=== PATIENT | male | born 1945 | race Caucasian/White ===

== ENCOUNTER 2024-05-09 16:46 | Inpatient (IN) | payer MEDICARE, OTHER, SELFPAY ==
[2024-05-09] VITALS (15 sets, daily range): BP systolic 123–152; BP diastolic 60–77; PULSE 56–110; RESP 16–20; TEMP 36.9–37; O2SAT 87–97; BMI 28.0
[2024-05-09 18:07] LABS: Influenza A - CEPHEID Flu A NEGATIVE (NEGATIVE); Influenza B - CEPHEID Flu B NEGATIVE (NEGATIVE); Respiratory Syncytial Virus Negative (Negative)
[2024-05-09 18:10] LABS: COVID-19 CEPHEID 4-PLEX PCR Negative (Negative)
[2024-05-09] MEDS: ALBUTEROL/IPRATROPIUM 3 ML AMPUL 6 ML INH (18:36)
[2024-05-09] MEDS: methylPREDNISolone 125 MG/2 ML VIAL IV (19:03)
[2024-05-09 19:08] LABS: Add Manual Diff / Slide Review NO; Basophils Absolute Auto 0 /uL (0-100); Basophils Percent Auto 0.4 % (0-2); Eosinophils Absolute Auto 200 /uL (0-450); Eosinophils Percent Auto 1.7 % (2-4); Hematocrit 36.3 % (41-53); Hemoglobin 12.1 g/dL (13.5-17.5); Lymphocytes Absolute Auto 900 /uL (1100-4500); Lymphocytes Percent Auto 8.9 % (25-40); Mean Corpuscular HGB Conc 33.4 % (30-36); Mean Corpuscular Hemoglobin 30.9 PG (26-34); Mean Corpuscular Volume 92.6 fL (80-100); Monocytes Absolute Auto 1200 /uL (0-900); Monocytes Percent Auto 11.1 % (3-14); Neutrophils Absolute Auto 8300 /uL (1500-7000); Neutrophils Percent Auto 77.9 % (50-75); Platelet Count 436 X10^3/uL (150-400); Red Blood Cell Count 3.92 X10^6/uL (4.5-5.9); Red Cell Distribution Width 14.4 % (11.6-14.8); White Blood Cell Count 10.7 X10^3/uL (4.5-11.0)
[2024-05-09 19:18] LABS: Alanine Aminotransferase 44 IU/L (<50); Albumin 3.4 g/dL (3.5-5.0); Albumin Globulin Ratio 1.1 (1.0-2.8); Alkaline Phosphatase 153 U/L (38-126); Aspartate Aminotransferase 28 IU/L (17-59); BUN Creatinine Ratio 17.9 (6-22); Bilirubin Total 0.6 mg/dL (0.2-1.3); Blood Urea Nitrogen 20 mg/dL (9-20); Calcium 8.8 mg/dL (8.4-10.2); Carbon Dioxide 34 mmol/L (22-32); Chloride 99 mmol/L (98-107); Estimated Glomerular Filt Rate > 60 mL/min (>60); Glucose 144 mg/dL (80-110); HEMOLYSIS < 15 (0-50); Potassium 3.8 mmol/L (3.4-5.1); Sodium 136 mmol/L (137-145); Total Protein 6.4 g/dL (6.3-8.2)
--- NOTE | 2024-05-09 19:51 | DI.CT.S_ITS ---
PROCEDURE: CT ANGIO CHEST PE PROTOCOL INDICATIONS: DYSPNEA, PERSISTENT PNA, OFF XARELTO TECHNIQUE: After the administration of intravenous contrast, 2 mm thick sections acquired from the pulmonary apices to the posterior costophrenic angles. 3-dimensional maximum intensity projection (MIP) coronal and sagittal reformats were then acquired through the thorax. For radiation dose reduction, the following was used: automated exposure control, adjustment of mA and/or kV according to patient size. COMPARISON: None. FINDINGS: Image quality: Diagnostic. Pulmonary arteries: Pulmonary arteries are normal in size, and demonstrate no intraluminal filling defects to suggest central pulmonary embolism. Lower Neck: No enlarged lymph nodes. Thyroid: No thyroid nodules which require sonographic follow up, per consensus guidelines. Axillae: No enlarged lymph nodes. Chest Wall: Unremarkable. Bones: Multiple chronic thoracic compressions resulting in increased thoracic kyphosis. Lungs and Pleura: Extensive bibasilar peribronchial infiltrates consistent with extensive peribronchial pneumonia. There is extensive bronchial wall thickening in the lung bases. There is also patchy consolidation in the lingula of the left lung and in the right middle lobe, and somewhat in the right upper lobe. Heart: Cardiomegaly, interatrial repair. Severe coronary artery atherosclerotic calcifications. Thoracic Vessels: No aortic aneurysm. Mediastinum and Kelley: No enlarged lymph nodes. Esophagus: No wall thickening. No hiatal hernia. Upper Abdomen: Visualized upper abdomen solid organs and bowel loops appear normal. IMPRESSION: 1. No acute pulmonary emboli. 2. Cardiomegaly. 3. Extensive peribronchial pneumonia. There is associated extensive bronchial wall thickening. 4. Multiple thoracic compressions with increased thoracic kyphosis. Comment: Consider aspiration pneumonia as a potential etiology. Dictated by: Dickson Sequeira M.D. on 05/09/2024 at 20:40 Approved by: Dickson Sequeira M.D. on 05/09/2024 at 20:44
--- NOTE | 2024-05-09 19:52 | ED.URI ---
HPI - URI/Sore Throat General Chief Complaint: Upper Respiratory Symptoms Stated Complaint: Sent from [facility] Time Seen by Provider: 05/09/24 18:00 History of Present Illness HPI Narrative: 78-year-old male with history of asthma presents by private vehicle from home for evaluation of pneumonia. Patient states that on the 29 of April he picked up a ?bug? while on a cruise in [place]. He went to the walk-in clinic on the . He was diagnosed with pneumonia and discharged with Augmentin and azithromycin. He finished these medications but continued to have a cough with sputum. He went back to the walk-in clinic today. A repeat chest x-ray showed no improvement in the pneumonia and he was referred to the ER for evaluation. Related Data Home Medications Medication Instructions Recorded Confirmed albuterol sulfate 90 mcg/actuation 2 puff INH ##0 11/11/16 aerosol inhaler (Ventolin HFA) albuterol sulfate 90 mcg/actuation 1 puff inhalation PRN PRN asthma 05/09/24 05/09/24 aerosol inhaler aspirin 81 mg tablet,delayed 81 mg DAILY 05/09/24 05/09/24 release fluticasone fur. 100 mcg-umeclid 2 inh inhalation DAILY 05/09/24 05/09/24 62.5 mcg-vilant 25 mcg inhalat.powder (Trelegy Ellipta) omeprazole 20 mg capsule,delayed 20 mg DAILY 05/09/24 05/09/24 release rivaroxaban 20 mg tablet (Xarelto) 20 mg DAILY 05/09/24 05/09/24 rivaroxaban 20 mg tablet (Xarelto) 20 mg DAILY 05/09/24 05/09/24 tadalafil 20 mg tablet 100 mg PRN PRN erectile dysfuction 05/09/24 05/09/24 telmisartan 20 mg tablet 20 mg DAILY 05/09/24 05/09/24 Allergies Allergy/AdvReac Type Severity Reaction Status Date / Time cat dander Allergy Unknown Verified 05/09/24 18:29 dog dander Allergy Unknown Verified 05/09/24 18:29 Patient History Social History household members: significant other Smoking Status: Never smoker Exam Initial Vital Signs Initial Vital Signs: Vital Signs Temperature 98.5 F 05/09/24 17:10 Pulse Rate 87 05/09/24 17:10 Respiratory Rate 20 05/09/24 17:10 Blood Pressure 124/60 05/09/24 17:10 Pulse Oximetry 93 05/09/24 17:10 Oxygen Delivery Method Room Air 05/09/24 17:10 Const: Awake, alert, no acute distress, nontoxic appearing Cardiac: regular rate, regular rhythm RESP: unlabored, paint inspirational crackles, soft expiratory wheezes GI: Soft, nontender, nondistended, no rebound, no guarding MSK: Atraumatic, full range of motion, pulses equal Skin: Warm, Dry, intact, no rashes Neuro: AO x3, CN II-XII grossly intact, moves all extremities Course Orders Ordered: ED Orders 05/09/24 18:35 CBC Auto Diff [Complete Blood Count AUTO DIFF] Stat CMP [Comprehensive Metabolic Panel] Stat 05/09/24 19:51 CT angio chest PE protocol Stat Albuterol/Ipratropium (Albuterol/Ipratropium 3 Ml Ampul) 3 ml INH [id number] PRN PRN Reason: Shortness Of Breath Albuterol/Ipratropium (Albuterol/Ipratropium 3 Ml Ampul) 3 ml INH [id number] [facility] Sodium Chloride (Normal Saline 0.9%) 1,000 mls @ 75 mls/hr IV CONT [facility] Last Admin: 05/09/24 23:30 Dose: 75 mls/hr Documented By: Piperacillin Sod/Tazobactam (Sod 3.375 gm/ Sodium Chloride) 100 mls @ 25 mls/hr IV Q8H [facility] Last Admin: 05/09/24 23:33 Dose: 25 mls/hr Documented By: Doxycycline Hyclate 100 mg/ (Sodium Chloride) 100 mls @ 100 mls/hr IV Q12H [facility] Methylprednisolone (Methylprednisolone 125 Mg/2 Ml Vial) 60 mg IV Q6H [facility] Last Admin: 05/10/24 01:44 Dose: 60 mg Documented By: AM Naloxone HCl (Naloxone 0.4 Mg/Ml Vial) 0.2 mg IV Q2MIN PRN PRN Reason: Opiate Reversal Ondansetron HCl (Ondansetron 4 Mg/2 Ml Inj) 4 mg IV Q8HR PRN PRN Reason: Nausea And Vomiting Discontinued Medications Albuterol/Ipratropium (Albuterol/Ipratropium 3 Ml Ampul) 6 ml INH NOW ONE Stop: 05/09/24 18:24 Last Admin: 05/09/24 18:36 Dose: 6 ml Documented By: NIMO Albuterol/Ipratropium (Albuterol/Ipratropium 3 Ml Ampul) 3 ml INH NOW ONE Stop: 05/09/24 19:45 Last Admin: 05/09/24 20:21 Dose: 3 ml Documented By: Droperidol (Droperidol 2.5 Mg/Ml Vial) 2.5 mg IV NOW ONE Stop: 05/09/24 18:48 Last Admin: 05/09/24 18:59 Dose: Not Given Documented By: MATTIE Ceftriaxone Sodium 2,000 mg/ (Sodium Chloride) 100 mls @ 200 mls/hr IV NOW ONE Stop: 05/09/24 20:12 Last Infusion: 05/09/24 21:13 Dose: Infused Documented By: Admin: 05/09/24 20:33 Dose: 200 mls/hr Documented By: MATTIE Doxycycline Hyclate 100 mg/ (Sodium Chloride) 100 mls @ 100 mls/hr IV NOW ONE Stop: 05/09/24 20:12 Last Infusion: 05/09/24 23:30 Dose: Infused Documented By: Infusion: 05/09/24 22:11 Dose: 100 mls/hr Documented By: Admin: 05/09/24 21:26 Dose: 100 mls/hr Documented By: MATTIE Doxycycline Hyclate 100 mg/ (Sodium Chloride) 100 mls @ 100 mls/hr IV Q12H [facility] Last Admin: 05/10/24 02:01 Dose: Not Given Documented By: CAROL Methylprednisolone (Methylprednisolone 125 Mg/2 Ml Vial) 125 mg IV NOW ONE Stop: 05/09/24 18:48 Last Admin: 05/09/24 19:03 Dose: 125 mg Documented By: MATTIE Methylprednisolone (Methylprednisolone 125 Mg/2 Ml Vial) 60 mg IV Q6H [facility] Last Admin: 05/10/24 02:23 Dose: Not Given Documented By: KEVIN Vital Signs Vital signs: Vital Signs - 8 hr 05/09/24 19:00 05/09/24 19:30 05/09/24 19:37 Pulse Rate 74 71 69 Respiratory Rate Blood Pressure Pulse Oximetry 91 89 L 91 Oxygen Delivery Method Oxygen Flow Rate 05/09/24 19:37 05/09/24 19:56 05/09/24 20:00 Pulse Rate 110 H 75 Respiratory Rate 20 18 Blood Pressure 151/73 H Pulse Oximetry 87 L 93 Oxygen Delivery Method Oxygen Flow Rate 05/09/24 20:30 05/09/24 21:00 05/09/24 21:30 Pulse Rate 77 96 H 82 Respiratory Rate Blood Pressure Pulse Oximetry 92 93 94 Oxygen Delivery Method Nasal Cannula Nasal Cannula Oxygen Flow Rate 1 1 MDM - URI/Sore Throat Differential Diagnosis Differential diagnosis: Likely upper respiratory infection, viral infection and bronchitis Lab Data 05/09/24 18:35 05/09/24 18:35 Labs: Lab Results 05/09/24 05/09/24 Range/Units 17:20 18:35 WBC 10.7 (4.5-11.0) X10^3/uL RBC 3.92 L (4.5-5.9) X10^6/uL Hgb 12.1 L (13.5-17.5) g/dL Hct 36.3 L (41-53) % MCV 92.6 (80-100) fL MCH 30.9 (26-34) PG MCHC 33.4 (30-36) % RDW 14.4 (11.6-14.8) % Plt Count 436 H (150-400) X10^3/uL Neut % (Auto) 77.9 H (50-75) % Lymph % (Auto) 8.9 L (25-40) % [place] % (Auto) 11.1 (3-14) % Eos % (Auto) 1.7 L (2-4) % Baso % (Auto) 0.4 (0-2) % Neut # (Auto) 8300 H (7412-8277) /uL Lymph # (Auto) 900 L (9431-8454) /uL [place] # (Auto) 1200 H (0-900) /uL Eos # (Auto) 200 (0-450) /uL Baso # (Auto) 0 (0-100) /uL Sodium 136 L (137-145) mmol/L Potassium 3.8 (3.4-5.1) mmol/L Chloride 99 (98-107) mmol/L Carbon Dioxide 34 H (22-32) mmol/L BUN 20 (9-20) mg/dL Creatinine 1.12 (0.66-1.25) mg/dL Estimated GFR > 60 (>60) mL/min BUN/Creatinine Ratio 17.9 (6-22) Glucose 144 H (80-110) mg/dL Calcium 8.8 (8.4-10.2) mg/dL Total Bilirubin 0.6 (0.2-1.3) mg/dL AST 28 (17-59) IU/L ALT 44 (<50) IU/L Alkaline Phosphatase 153 H (38-126) U/L Total Protein 6.4 (6.3-8.2) g/dL Albumin 3.4 L (3.5-5.0) g/dL Globulin 3.0 (1.7-4.1) g/dL Albumin/Globulin Ratio 1.1 (1.0-2.8) SARS-CoV-2 (PCR) Negative (Negative) Influenza A (RT-PCR) Flu a negative (NEGATIVE) Influenza B (RT-PCR) Flu b negative (NEGATIVE) RSV (PCR) Negative (Negative) MDM Narrative Medical decision making narrative: Persistent pneumonia despite completion of outpatient oral medications. Patient with borderline oxygen saturations, 93% on room air. He states that he feels improved after nebulizers, however with ambulation trial patient quickly desaturates to the mid 80s after taking several steps outside of his room. Rocephin and doxycycline ordered IV for coverage CT angio shows extensive peribronchial pneumonia. Radiology recommendations considering aspiration PNA as etiology. Patient to be admitted for further treatment. Discharge Plan Departure Patient Disposition: Admitted As Inpatient Clinical Impression: Pneumonia Admit Date/Time: 05/09/24 21:39 Admit Provider: Graeme Roberts
[2024-05-09] MEDS: ALBUTEROL/IPRATROPIUM 3 ML AMPUL INH (20:21)
[2024-05-09] MEDS: cefTRIAXone 2,000 MG in SODIUM CHLORIDE 0.9% 100 ML 200 MG IV (20:33)
[2024-05-09] MEDS: DOXYCYCLINE 100 MG in SODIUM CHLORIDE 0.9% 100 ML IV (21:26)
[2024-05-09] MEDS: SODIUM CHLORIDE 0.9% 1,000 ML 75 ML IV (23:30)
[2024-05-09] MEDS: PIPERACILLIN/TAZO 3.375 GM in SODIUM CHLORIDE 0.9% 100 ML IV (23:33)
[2024-05-10] VITALS (11 sets, daily range): BP systolic 127–158; BP diastolic 47–64; PULSE 51–96; RESP 17–22; TEMP 36–37; O2SAT 62–99
[2024-05-10] MEDS: methylPREDNISolone 125 MG/2 ML VIAL 60 MG IV ×4 (01:44→19:25)
[2024-05-10] MEDS: ALBUTEROL/IPRATROPIUM 3 ML AMPUL INH ×4 (03:32→19:09)
--- NOTE | 2024-05-10 04:11 | P.HP_ITS ---
History of Present Illness History of Present Illness Chief complaint: Sent from [facility]e Pneumonia Narrative: 78 year old male with past medical history of asthma and GERD presents with complaints of coughing and shortness of breath. Per the patient's report, the patient was on a cruise to [place] about ten days ago. The patient went to walk in clinic on 05/01/24 and was diagnosed with Pneumonia and prescribed Azithromycin and Augmentin. The patient reports that he completed the course of antibiotics as instructed but he continue to have productive cough and some shortness of breath. The patient return to the clinic today and had a repeat CXR where there is no improvement in the pneumonia. The patient was referrred to our ER for further management. Otherwise, the patient denies any fever, chills, nausea, vomiting, chest pain or syncope. In our ER, the patient was hemodynamically stable but was requiring 1-2L of O2 per NC. Per our ER physician, the patient was having significant wheezing and Solumedrol, nebs were given. IV Ceftriaxone/Doxycycline were also given. CTA shows extensive peribronchial pneumonia with concern for possible pneumonia. [facility] Social History household members: significant other Smoking Status: Never smoker Meds Home Medications and Allergies Home Medications Medication Instructions Recorded Confirmed Type albuterol sulfate 90 mcg/actuation 2 puff INH ##0 11/11/16 History aerosol inhaler (Ventolin HFA) albuterol sulfate 90 mcg/actuation 1 puff inhalation PRN PRN asthma 05/09/24 05/09/24 History aerosol inhaler aspirin 81 mg tablet,delayed 81 mg DAILY 05/09/24 05/09/24 History release fluticasone fur. 100 mcg-umeclid 2 inh inhalation DAILY 05/09/24 05/09/24 History 62.5 mcg-vilant 25 mcg inhalat.powder (Trelegy Ellipta) omeprazole 20 mg capsule,delayed 20 mg DAILY 05/09/24 05/09/24 History release rivaroxaban 20 mg tablet (Xarelto) 20 mg DAILY 05/09/24 05/09/24 History rivaroxaban 20 mg tablet (Xarelto) 20 mg DAILY 05/09/24 05/09/24 History tadalafil 20 mg tablet 100 mg PRN PRN erectile dysfuction 05/09/24 05/09/24 History telmisartan 20 mg tablet 20 mg DAILY 05/09/24 05/09/24 History Allergies Allergy/AdvReac Type Severity Reaction Status Date / Time cat dander Allergy Unknown Verified 05/09/24 18:29 dog dander Allergy Unknown Verified 05/09/24 18:29 Review of Systems Review of Systems ROS: Yes All systems reviewed with the patient and are negative except as otherwise documented Exam Vital Signs (past 8 hours): - 05/09/24 20:30 05/09/24 21:00 05/09/24 21:30 Temperature Pulse Rate 77 96 H 82 Respiratory Rate Blood Pressure Pulse Oximetry 92 93 94 Oxygen Delivery Method Nasal Cannula Nasal Cannula Oxygen Flow Rate 1 1 05/09/24 22:00 05/09/24 22:04 05/09/24 22:04 Temperature 98.6 F Pulse Rate 80 81 Respiratory Rate 20 Blood Pressure 123/72 Pulse Oximetry 95 97 Oxygen Delivery Method Nasal Cannula Oxygen Flow Rate 2 05/10/24 03:00 Temperature 96.8 F L Pulse Rate 68 Respiratory Rate 20 Blood Pressure 158/60 H Pulse Oximetry 99 Oxygen Delivery Method Oxygen Flow Rate 2 Oxygen Delivery Method Nasal Cannula Oxygen Flow Rate 2 Narrative Exam Narrative: Physical Exam: GENERAL: The patient is not in any acute distressed. Awake and alert. HEENT: Nonicteric sclerae, PERRLA, EOMI. Oropharynx clear. Moist mucous membranes. Conjunctivae appear well perfused. HEART: Regular rate and rhythm without murmurs. No lower extremities edema. LUNGS: Clear to auscultation bilaterally. No wheezing, crackles or rhonchi ABDOMEN: Soft, positive bowel sounds, nontender. SKIN: No rash, no excessive bruising, petechiae, or purpura. NEUROLOGIC: AxO x 3. Cranial nerves II-XII intact without motor/sensory deficit. Objective Labs 05/09/24 18:35 05/09/24 18:35 Labs: Laboratory Results - last 24 hr 05/09/24 05/09/24 17:20 18:35 WBC 10.7 RBC 3.92 L Hgb 12.1 L Hct 36.3 L MCV 92.6 MCH 30.9 MCHC 33.4 RDW 14.4 Plt Count 436 H Neut % (Auto) 77.9 H Lymph % (Auto) 8.9 L [place] % (Auto) 11.1 Eos % (Auto) 1.7 L Baso % (Auto) 0.4 Neut # (Auto) 8300 H Lymph # (Auto) 900 L [place] # (Auto) 1200 H Eos # (Auto) 200 Baso # (Auto) 0 Sodium 136 L Potassium 3.8 Chloride 99 Carbon Dioxide 34 H BUN 20 Creatinine 1.12 Estimated GFR > 60 BUN/Creatinine Ratio 17.9 Glucose 144 H Calcium 8.8 Total Bilirubin 0.6 AST 28 ALT 44 Alkaline Phosphatase 153 H Total Protein 6.4 Albumin 3.4 L Globulin 3.0 Albumin/Globulin Ratio 1.1 SARS-CoV-2 (PCR) Negative Influenza A (RT-PCR) Flu a negative Influenza B (RT-PCR) Flu b negative RSV (PCR) Negative Assessment & Plan Assessment & Plan narrative: Asthma exacerbation. Admit the patient to medical telemetry. Likely trigger is from underlying pneumonia. Continue IV Solumedrol and duonebs. Treat underlying infection. Pneumonia (concern for aspiration pneumonia) and failed outpatient treatment. s/p Augmentin and Azithromycin as outpatient. NPO. Swallow evaluation. IVF. IV Zosyn and doxycycline. Mild acute respiratory failure with hypoxemia. Patient currently on 1-2L of O2 per NC. CTA chest shows no sign of PE. Likely from above. Treat as above and wean down O2 as able. GERD. Resume home PPI. DVT PPx hep SQ Code status full code Disposition home in 2 days Time-Based Coding :: [TOTAL MINUTES] spent with patient and on the chart (including review of chart, obtaining history, exam, reviewing outside data, placing orders, documenting exam and treatment plan, and counseling patient) on [DATE].
[2024-05-10 05:29] LABS: Add Manual Diff / Slide Review NO; Basophils Absolute Auto 0 /uL (0-100); Basophils Percent Auto 0.1 % (0-2); Eosinophils Absolute Auto 0 /uL (0-450); Eosinophils Percent Auto 0.1 % (2-4); Hematocrit 36.5 % (41-53); Hemoglobin 11.9 g/dL (13.5-17.5); Lymphocytes Absolute Auto 400 /uL (1100-4500); Lymphocytes Percent Auto 5.7 % (25-40); Mean Corpuscular HGB Conc 32.6 % (30-36); Mean Corpuscular Hemoglobin 30.5 PG (26-34); Mean Corpuscular Volume 93.4 fL (80-100); Monocytes Absolute Auto 100 /uL (0-900); Monocytes Percent Auto 1.7 % (3-14); Neutrophils Absolute Auto 6100 /uL (1500-7000); Neutrophils Percent Auto 92.4 % (50-75); Platelet Count 404 X10^3/uL (150-400); Red Cell Distribution Width 14.5 % (11.6-14.8); White Blood Cell Count 6.6 X10^3/uL (4.5-11.0)
[2024-05-10 05:39] LABS: BUN Creatinine Ratio 17.9 (6-22); Blood Urea Nitrogen 20 mg/dL (9-20); Calcium 8.6 mg/dL (8.4-10.2); Carbon Dioxide 30 mmol/L (22-32); Chloride 99 mmol/L (98-107); Estimated Glomerular Filt Rate > 60 mL/min (>60); Glucose 207 mg/dL (80-110); HEMOLYSIS < 15 (0-50); Potassium 4.6 mmol/L (3.4-5.1); Sodium 134 mmol/L (137-145)
[2024-05-10] MEDS: PIPERACILLIN/TAZO 3.375 GM in SODIUM CHLORIDE 0.9% 100 ML IV ×3 (05:51→21:57)
[2024-05-10] MEDS: DOXYCYCLINE 100 MG in SODIUM CHLORIDE 0.9% 100 ML IV ×2 (10:22→20:42)
--- NOTE | 2024-05-10 10:50 | PT.IIE ---
Physical Therapy Inpatient Evaluation/Re-Eval M1 PT/OT-IP Prior Functional Status Start: 05/10/24 12:59 Freq: NEEDED Status: Active Protocol: Document 05/10/24 10:50 AB (Rec: 05/10/24 13:13 AB [id number]) Medical Review Prior Functional Status Medical History Reviewed Yes Communication able to make needs known Mobility and Gait pt stated that he was indpeendent with all mobilities and ambulation without AD Social History Household Members significant other Living Arrangements House Number of Floors (Floors) 3 or More Floors Number of Stairs To Enter/Railing? pt stays on main level of the house has 3 steps without rails to enter the house Home Environment High Toilet,Walk in Shower Home Equipment Shower Seat with Backrest,Hand Held Shower,Grab Bars In Shower Additional Social History Comment pt has walking sticks M2 PT-IP Current Condition Start: 05/10/24 12:59 Freq: NEEDED Status: Active Protocol: Document 05/10/24 10:50 AB (Rec: 05/10/24 13:13 AB [id number]) Physical Therapy Current Condition Current Condition Evaluation Date 05/10/24 Treatment Diagnosis PNA; difficulty in walking Onset Date 05/09/24 M3 PT-IP Subjective Start: 05/10/24 12:59 Freq: NEEDED Status: Active Protocol: Document 05/10/24 10:50 AB (Rec: 05/10/24 13:13 AB [id number]) Subjective Physical Therapy Visit Type Type Initial Evaluation Visit Start Time 10:50 Visit Stop Time 11:40 Number of [employer]ER Visits 0 Physical Therapy Visit Comments Patient Comments pt agreeable to do PT M4 PT-IP Mobility and Gait Start: 05/10/24 12:59 Freq: NEEDED Status: Active Protocol: Document 05/10/24 10:50 AB (Rec: 05/10/24 13:13 AB [id number]) PT-Bed Mobility Assessment Supine to Sit Supine to Sit Standby Assistance PT-Transfer Assessment Sit to and From Stand Sit to and from Stand Standby Assistance,1 Person Assistance,Use of Upper Extremities Equipment Transfer Assistive Device Gait Belt,Front Wheeled Walker Orthotic/Prosthetic Devices or Brace: No Transfers Transfer Destination Chair Transfer Technique ambulated Transfer Ability Level of Assist Standby Assistance,1 Person Assistance,Use of Upper Extremities Comments Mobility Comments pt in bed and significant other in with pt. obtained PLOF and home setup. O2 sat with 2L/min O2: 94%. BP: 177/ 57 (+) coughing. pt completed supine to sit SBA . able to sit on EOB SBA. BP: 136/68. c/o feeling whoozy. pt sat on EOB for a few minutes. BP checked again: 133 /60. sit to stand SBA and pt ambulated in room ~ 20 ft using FWW SBA. pt sat on chair . O2 sat: 90%. pt rested. O2 sat up 94% . agreed to walk again. Assessed ambulation without AD. sit to stand from chair SBA and ambulated in room without AD ~ 30 ft CGA. slow paced antalgic gait. pt sat on the chair. O2 sat checked: 93%. pt agreed to stay up on the chair. positioned pt on the chair. call light and table placed within reach. Gait Assessment Gait Gait Assistance Required: Standby Assistance,Contact Guard Assist Distance (Feet) 30 Assistive Devices Assistive Device None,Gait Belt,Front Wheeled Walker Orthotic/Prosthetic Devices or Brace: No Gait Deviations General Gait Pattern Decreased Stride Length, Decreased Feet Clearance Factors Limiting Gait Function Factors Limiting Gait Function Decreased Activity Tolerance, Decreased Strength,Poor Balance,Poor Safety Awareness PT-Balance Assessment Sitting Balance and Reactions Static Sitting Balance Ability Normal Dynamic Sitting Balance Ability Good Standing Balance and Reactions Static Standing Balance Ability Good Dynamic Standing Balance Ability Fair Device Used without AD M5 PT-IP Objective Assessments Start: 05/10/24 12:59 Freq: NEEDED Status: Active Protocol: Document 05/10/24 10:50 AB (Rec: 05/10/24 13:13 AB [id number]) Orientation Orientation/Cognition Level of Alertness Alert Orientation Name,Place,Situation Language Function Ability No Deficits Noted Safety Awareness Understands Safety Issues Memory Description Short Term Impaired Gross Range of Motion Lower Extremity ROM Assessment Within Functional Limits Strength Lower Extremity Strength Assessment Within Functional Limits Coordination Assessment Gross Coordination Gross Coordination WNL Sensation Assessment Sensation Gross Sensation WNL Muscle Tone Muscle Tone WNL Yes M6 PT-IP Treatment Start: 05/10/24 12:59 Freq: NEEDED Status: Active Protocol: Document 05/10/24 10:50 AB (Rec: 05/10/24 13:13 AB [id number]) Physical Therapy Treatment Education Education Provided Safety M7 PT-IP Assessment and Plan Start: 05/10/24 12:59 Freq: NEEDED Status: Active Protocol: Document 05/10/24 10:50 AB (Rec: 05/10/24 13:13 AB [id number]) PT Summary Assessment and Plan Potential Rehabilitation Potential Fair Status of Condition at Evaluation Evolving Summary Impairments Pain,ROM,Strength,Balance, Coordination,Sensation,Tone, Cognition,Bed Mobility, Transfers,Gait,Activity Tolerance Assessment Summary pt is a 78 y/o M who is admitted for PNA. pt requiring SBA to CGA with mobility without AD, use of 2L /min O2 and O2 sat 91-93% with activities. pt lives with his significant other. pt to continue PT here in the hospital to improve overall strength and activity tolerance and prevent further deconditioning. will continue to assess. Goals Bed Mobility Goal Independent Transfer Goal Independent Gait Goal Independent Gait Distance 200 Other Goals improve ambulation without AD >300 ft I up/down 3 steps without rail mod I Days to Meet Goals 10 Frequency of Treatment Frequency Of Treatment Once a Day Treatment Plan Physical Therapy Treatment Plan Bed Mobility Training,Transfer Training,Gait Training, Therapeutic Exercise,Balance Retraining,Discharge Planning, Hot or Cold Pack,Neuromuscular Re-ed,Coordination Retraining Precautions Other Precautions O2 sat Recommendations To Nursing Amount of Assist Needed 1 Person Assist Discharge Recommendations PT Discharge Recommendations Home with Assistance Transportation Needs at Discharge Private Vehicle
--- NOTE | 2024-05-10 14:37 | P.PN_ITS ---
Subjective Subjective Date Patient Seen: 05/10/24 Interval history: Narrative: 78 year old male with past medical history of asthma and GERD presents with complaints of coughing and shortness of breath. Per the patient's report, the patient was on a cruise to [place] about ten days ago. The patient went to walk in clinic on 05/01/24 and was diagnosed with Pneumonia and prescribed Azithromycin and Augmentin. The patient reports that he completed the course of antibiotics as instructed but he continue to have productive cough and some shortness of breath. The patient return to the clinic today and had a repeat CXR where there is no improvement in the pneumonia. The patient was referrred to our ER for further management. Otherwise, the patient denies any fever, chills, nausea, vomiting, chest pain or syncope. In our ER, the patient was hemodynamically stable but was requiring 1-2L of O2 per NC. Per our ER physician, the patient was having significant wheezing and Solumedrol, nebs were given. IV Ceftriaxone/Doxycycline were also given. CTA shows extensive peribronchial pneumonia with concern for possible pneumonia. Interval history: Patient reports feeling slightly better. He has a history of asthma and a couple of prednisone of his own at home. He feels that when he eats he might have some food occasionally go down the wrong tube, as he puts it. He notes a history of PFO repair in the past as a known PFO seemed to worsen over the years, and is followed by Dr. Mcgarry of Cardiology at [facility] with an appointment plan this week. Exam Vital Signs (past 8 hours): - 05/10/24 07:00 05/10/24 08:00 05/10/24 10:21 Temperature 98.6 F Pulse Rate 51 L 94 H Respiratory Rate 17 20 Blood Pressure 156/64 H Pulse Oximetry 97 94 Oxygen Delivery Method Nasal Cannula Oxygen Flow Rate 2 Fraction of Inspired Oxygen 21 05/10/24 10:28 05/10/24 10:32 05/10/24 12:00 Temperature 98.4 F Pulse Rate 80 Respiratory Rate 17 Blood Pressure 129/52 L Pulse Oximetry 94 90 L 95 Oxygen Delivery Method Oxygen Flow Rate 0 0 2 Fraction of Inspired Oxygen Fraction of Inspired Oxygen 21 SaO2/FiO2 Ratio 447 Oxygen Delivery Method Nasal Cannula Oxygen Flow Rate 2 Narrative Exam Narrative: GENERAL: This is a well-nourished, well-developed patient, in no apparent distress. EYES: Pupils equal round and reactive. Extraocular motions intact. No scleral icterus. No injection or drainage. ENT: Mucous membranes pink and moist. NECK: Trachea midline. No JVD, bruits or lymphadenopathy. Supple, nontender, no meningeal signs. CARDIOVASCULAR: Regular rate and rhythm without murmurs, gallops, or rubs. RESPIRATORY: Decreased breath sounds bilateral bases with crackles, no wheezing on forced expiration GASTROINTESTINAL: Abdomen soft, non-tender, nondistended. EXTREMITIES: No clubbing, cyanosis, or edema. NEUROLOGIC: Alert, oriented, speech fluent, full upper and lower motor strength, no focal deficits evident. DERMATOLOGIC: No rashes or skin lesions. Objective Imaging CT scan - chest: Radiologist's impression: 1. No acute pulmonary emboli. 2. Cardiomegaly. 3. Extensive peribronchial pneumonia. There is associated extensive bronchial wall thickening. 4. Multiple thoracic compressions with increased thoracic kyphosis. Comment: Consider aspiration pneumonia as a potential etiology. Labs 05/10/24 04:14 05/10/24 04:14 Labs: Laboratory Results - last 24 hr 05/09/24 05/09/24 05/10/24 17:20 18:35 04:14 WBC 10.7 6.6 RBC 3.92 L 3.90 L Hgb 12.1 L 11.9 L Hct 36.3 L 36.5 L MCV 92.6 93.4 MCH 30.9 30.5 MCHC 33.4 32.6 RDW 14.4 14.5 Plt Count 436 H 404 H Neut % (Auto) 77.9 H 92.4 H Lymph % (Auto) 8.9 L 5.7 L [place] % (Auto) 11.1 1.7 L Eos % (Auto) 1.7 L 0.1 L Baso % (Auto) 0.4 0.1 Neut # (Auto) 8300 H 6100 Lymph # (Auto) 900 L 400 L [place] # (Auto) 1200 H 100 Eos # (Auto) 200 0 Baso # (Auto) 0 0 Sodium 136 L 134 L Potassium 3.8 4.6 Chloride 99 99 Carbon Dioxide 34 H 30 BUN 20 20 Creatinine 1.12 1.12 Estimated GFR > 60 > 60 BUN/Creatinine Ratio 17.9 17.9 Glucose 144 H 207 H Calcium 8.8 8.6 Total Bilirubin 0.6 AST 28 ALT 44 Alkaline Phosphatase 153 H Total Protein 6.4 Albumin 3.4 L Globulin 3.0 Albumin/Globulin Ratio 1.1 SARS-CoV-2 (PCR) Negative Influenza A (RT-PCR) Flu a negative Influenza B (RT-PCR) Flu b negative RSV (PCR) Negative [facility] Social History household members: significant other Smoking Status: Never smoker Assessment & Plan Assessment & Plan narrative: 1. Pneumonia (concern for aspiration pneumonia) and failed outpatient treatment. s/p Augmentin and Azithromycin as outpatient. Carefully advance diet. Swallow evaluation. IVF. IV Zosyn and doxycycline. 2. Asthma exacerbation. Admit the patient to medical telemetry. Likely trigger is from underlying pneumonia. Continue IV Solumedrol and duonebs. Treat underlying infection. 3. Mild acute respiratory failure with hypoxemia. Patient currently on 1-2L of O2 per NC. CTA chest shows no sign of PE. Likely from above. Treat as above and wean down O2 as able. 4. GERD. Resume home PPI. DVT PPx hep SQ Code status full code Disposition home in 2 days PROFEE Machinist Mate Document charge(s): No Charge Codes Subsequent inpatient/observation care: [id number]
--- NOTE | 2024-05-10 16:19 | CM.DANOTE ---
B DCP Assessment Note pt is a 78yo M here with pneumonia/concerns for aspiration pneumonia. PCP none listed Payer Medicare and for life EXPENDITURE REQUISITION CLERK reviewed EMR Per chart review, pt lives indep with spouse in [place]. recently returned from cruise to [place] 10 days ago. no DME at baseline/has walking sticks. per chart, pt on 2ltrs O2 throughout the day. Speech therapy eval pending. per provider PN, dc home in 2 days. PT=home with assistance EXPENDITURE REQUISITION CLERK unable to meet with pt today due to triaging needs. P: no identified barriers to safe dc home at this time. anticipate home with spouse when medically stable. CM team will continue to follow as needed MALIA Huang Discharge Planning/Care Management CM Discharge Assessment Start: 05/10/24 16:18 Freq: Status: Active Protocol: Document 05/10/24 16:18 SL (Rec: 05/10/24 16:19 SL [id number]) Discharge Planning Assessment Assigned Mortgage Loan Computation Clerk MALIA Johnson DPOA/Assigned Designee Name Jenna spouse Contact Information [phone] Advance Directives? No History Provided By Patient,Family Member Prior Living Arrangements House Household Members significant other Independent with ADL's Yes Is patient alert and oriented? Yes Discharge Plan Home Referrals Initiated None needed Review Status In Process Please Provide Date Initial DC 05/10/24 Assessment Was Performed Next Review Type Continued Stay Review
[2024-05-10] MEDS: SODIUM CHLORIDE 0.9% FLUSH 10 ML IV (20:38)
[2024-05-11] MEDS: methylPREDNISolone 125 MG/2 ML VIAL 60 MG IV ×2 (01:02→07:55)
[2024-05-11 03:00] VITALS: BP 123/54; PULSE 59; RESP 20; TEMP 36.3; O2SAT 95
[2024-05-11] MEDS: PIPERACILLIN/TAZO 3.375 GM in SODIUM CHLORIDE 0.9% 100 ML IV (06:10)
[2024-05-11] MEDS: SODIUM CHLORIDE 0.9% FLUSH 10 ML IV (07:55)
[2024-05-11 08:00] VITALS: BP 141/67; PULSE 71; RESP 20; TEMP 36.9; O2SAT 96
[2024-05-11 09:05] VITALS: PULSE 84; RESP 20; O2SAT 94
[2024-05-11] MEDS: ALBUTEROL/IPRATROPIUM 3 ML AMPUL INH ×2 (09:05→13:40)
[2024-05-11] MEDS: DOXYCYCLINE 100 MG in SODIUM CHLORIDE 0.9% 100 ML IV (10:12)
--- NOTE | 2024-05-11 11:08 | PT-IP ANOTE ---
Attempted to see pt this AM, pt states he feels he has no further needs from PT and is mobilizing fine/refuses treatment.
--- NOTE | 2024-05-11 11:11 | CM.DPNOTE ---
DCP note TERRAZZO TILE MAKER reviewed EMR Per chart review/provider in morning rounds, pt cleared for dc home today with OP speech f/u. TERRAZZO TILE MAKER met with pt in room. confirms indep at baseline, drives, and denies and CM needs at this time. lives with spouse in [place]. only concern is transport home. pt preference would be to have friend transport but friend likely unavailable today. TERRAZZO TILE MAKER provided contact information for [employer], pt agreeable to paying for taxi home. denies other CM needs. TERRAZZO TILE MAKER updated RN. P: dc home today with OP f/u, transport with taxi vs friend likely. no further CM needs identified at this time, CM team will continue to follow as needed MALIA Huang
--- NOTE | 2024-05-11 12:30 | PM.DS.IH.1 ---
History of Present Illness History of Present Illness Date Patient Seen: 05/11/24 Time Patient Seen: 10:30 Date of Onset of Symptoms: 06/07/24 Chief complaint: Sent from [place], Pneumonia Narrative: 78 year old male with past medical history of asthma and GERD presents with complaints of coughing and shortness of breath. Per the patient's report, the patient was on a cruise to [facility] about ten days ago. The patient went to walk in clinic on 05/01/24 and was diagnosed with Pneumonia and prescribed Azithromycin and Augmentin. The patient reports that he completed the course of antibiotics as instructed but he continue to have productive cough and some shortness of breath. The patient return to the clinic today and had a repeat CXR where there is no improvement in the pneumonia. The patient was referrred to our ER for further management. Otherwise, the patient denies any fever, chills, nausea, vomiting, chest pain or syncope. In our ER, the patient was hemodynamically stable but was requiring 1-2L of O2 per NC. Per our ER physician, the patient was having significant wheezing and Solumedrol, nebs were given. IV Ceftriaxone/Doxycycline were also given. CTA shows extensive peribronchial pneumonia with concern for possible pneumonia. Interval history: Patient reports feeling slightly better. He has a history of asthma and a couple of prednisone of his own at home. He feels that when he eats he might have some food occasionally go down the wrong tube, as he puts it. He notes a history of PFO repair in the past as a known PFO seemed to worsen over the years, and is followed by Dr. Mcgarry of Cardiology at [facility] with an appointment plan this week. Discharge Providers Provider Date of admission: 05/09/24 21:39 Discharge Date: 05/11/24 Consults: 05/09/24 22:13 Consult to Occupational Therapy Evaluate & Treat Comment: Physician Instructions: Evaluate and treat Consult to Physical Therapy Evaluate & Treat Comment: Physician Instructions: Evaluate and Treat Discharge provider: Gonzalo Jacobsen MD Summary Hospital Course Discharge Diagnosis: 1. Recent community-acquired pneumonia, with exacerbation felt possibly due to aspiration pneumonia and asthma exacerbation 2. Asthma exacerbation 3. Acute hypoxic respiratory failure, resolved. 4. GERD. 5. Chronic atrial fibrillation on anticoagulation. 6. Status post remote PFO repair. Hospital Course: Patient was admitted and treated with IV Zosyn and doxycycline. He appeared to swallow safely and was permitted to eat though a formal swallow evaluation was not performed. It was felt that he may have developed mild oropharyngeal dysphagia as a result of his recent illness that led to this aspiration, and outpatient follow-up was recommended. Cultures and viral pathogen analysis for COVID, flu and RSV were negative. He was mildly hypoxic and this resolved rapidly over brief admission, with normal oxygenation on room air at discharge. He was feeling well and interested in discharge home with outpatient follow-up. No other issues arose. Status at Discharge Cognitive/behavioral status at discharge: oriented Functional status at discharge: independent ambulation Overall status at discharge: patient is progressing back to baseline Time Spent with Patient Time spent: Greater than 30 minutes Exam Vital Signs (past 8 hours): - 05/11/24 08:00 05/11/24 08:00 05/11/24 09:05 Temperature 98.5 F Pulse Rate 71 84 Respiratory Rate 20 20 Blood Pressure 141/67 H Pulse Oximetry 96 94 Oxygen Delivery Method Room Air Room Air Oxygen Flow Rate 0 Fraction of Inspired Oxygen 24 SaO2/FiO2 Ratio 395 Oxygen Delivery Method Room Air Oxygen Flow Rate 0 Narrative Exam Narrative: GENERAL: This is a well-nourished, well-developed patient, in no apparent distress. EYES: Pupils equal round and reactive. Extraocular motions intact. No scleral icterus. No injection or drainage. ENT: Mucous membranes pink and moist. NECK: Trachea midline. No JVD, bruits or lymphadenopathy. Supple, nontender, no meningeal signs. CARDIOVASCULAR: Regular rate and rhythm without murmurs, gallops, or rubs. RESPIRATORY: Decreased breath sounds bilateral bases with crackles, no wheezing on forced expiration. GASTROINTESTINAL: Abdomen soft, non-tender, nondistended. EXTREMITIES: No clubbing, cyanosis, or edema. NEUROLOGIC: Alert, oriented, speech fluent, full upper and lower motor strength, no focal deficits evident. DERMATOLOGIC: No rashes or skin lesions. Objective Imaging CT scan - chest: Radiologist's impression: 1. No acute pulmonary emboli. 2. Cardiomegaly. 3. Extensive peribronchial pneumonia. There is associated extensive bronchial wall thickening. 4. Multiple thoracic compressions with increased thoracic kyphosis. Comment: Consider aspiration pneumonia as a potential etiology. Labs 05/10/24 04:14 05/10/24 04:14 Labs: Laboratory Results - last 24 hr 05/09/24 05/09/24 05/10/24 17:20 18:35 04:14 WBC 10.7 6.6 RBC 3.92 L 3.90 L Hgb 12.1 L 11.9 L Hct 36.3 L 36.5 L MCV 92.6 93.4 MCH 30.9 30.5 MCHC 33.4 32.6 RDW 14.4 14.5 Plt Count 436 H 404 H Neut % (Auto) 77.9 H 92.4 H Lymph % (Auto) 8.9 L 5.7 L [place] % (Auto) 11.1 1.7 L Eos % (Auto) 1.7 L 0.1 L Baso % (Auto) 0.4 0.1 Neut # (Auto) 8300 H 6100 Lymph # (Auto) 900 L 400 L [place] # (Auto) 1200 H 100 Eos # (Auto) 200 0 Baso # (Auto) 0 0 Sodium 136 L 134 L Potassium 3.8 4.6 Chloride 99 99 Carbon Dioxide 34 H 30 BUN 20 20 Creatinine 1.12 1.12 Estimated GFR > 60 > 60 BUN/Creatinine Ratio 17.9 17.9 Glucose 144 H 207 H Calcium 8.8 8.6 Total Bilirubin 0.6 AST 28 ALT 44 Alkaline Phosphatase 153 H Total Protein 6.4 Albumin 3.4 L Globulin 3.0 Albumin/Globulin Ratio 1.1 SARS-CoV-2 (PCR) Negative Influenza A (RT-PCR) Flu a negative Influenza B (RT-PCR) Flu b negative RSV (PCR) Negative PFSH Social History household members: significant other Smoking Status: Never smoker Discharge Plan Discharge Plan Patient Disposition: Home Provider Discharge Comment: Followup with PCP 1 week Discharge orders & Medications Prescriptions: New cefuroxime axetil 500 mg tablet 500 mg PO BID Qty: 14 0RF doxycycline hyclate 100 mg capsule 100 mg PO BID Qty: 14 0RF prednisone 10 mg tablet 10 mg PO DAILY Qty: 20 0RF Rx Instructions: administer with food or milk, take 4 tabs daily x 2 days, then 3 tabs daily x 2 days, then 2 tabs daily x 2 days, then 1 tab daily x 2 days albuterol sulfate 1.25 mg/3 mL solution for nebulization 1.25 mg inhalation Q8H PRN (Reason: shortness of breath or wheezing) Qty: 90 0RF Continued albuterol sulfate [Ventolin HFA] 90 MCG/PUFF HFA aerosol inhaler 2 puff INH Qty: 0 Xarelto 20 mg tablet 20 mg DAILY aspirin 81 mg tablet,delayed release (DR/EC) 81 mg DAILY omeprazole 20 mg capsule,delayed release(DR/EC) 20 mg DAILY telmisartan 20 mg tablet 20 mg DAILY tadalafil 20 mg tablet 100 mg PRN PRN (Reason: erectile dysfuction) Patient Comments: [NO ORIGINAL SIG] Xarelto 20 mg tablet 20 mg DAILY Trelegy Ellipta 100-62.5-25 mcg blister with device 2 inh INHALATION DAILY albuterol sulfate 90 mcg/actuation HFA aerosol inhaler 1 puff INHALATION PRN PRN (Reason: asthma) Qty: 8.5 0RF Visit Report/Discharge Packet Stand Alone Forms: Patient Portal/API, Stroke Signs & Symptoms Quality MIPS - Admit I confirm the patient?s Advance Care Plan is present, Code status is documented, Surrogate decision maker is in patient?s record [If Yes, STOP here]: Yes MIPS - Meds 'Current medications' to include all prescriptions, [id number] products, herbals, cannabis/cannabidiol products, and vitamin/mineral/dietary (nutritional) supplements. I have utilized all available resources to obtain, update, or review the patient?s current medications. [If Yes, STOP here]: Yes MIPS - DC The patient has a history of heart transplant or Left Ventricular Assist Device (LVAD). If yes, STOP here.: No The patient has current or prior documentation of left ventricular ejection fraction (LVEF) less than or equal to 40%, or moderate or severely depressed left ventricular systolic function.: No A. The patient was prescribed or already taking an Angiotensin-Converting Enzyme (KARLENE) Inhibitor, or Angiotensin Receptor Tavo (ARB).: Yes B. The patient was prescribed or already taking a beta-tavo. [If Yes to Both A & B, STOP here]: No Patient not prescribed/taking KARLENE or ARB, no reason given.: No Patient not prescribed/taking beta-tavo, no reason given.: No PROFEE Charge Codes Discharge inpatient/observation: [id number]
--- NOTE | 2024-05-11 15:29 | PC.NURSE ---
Discharge note: Patient up OOB, ambulating in room, voiding, excellent PO intake, dressed self. Remain on RA, sats 98%. No SOB noted at rest of with activity. Discharge instructions given to patient, discussed importance of F/U with PCP in week, signs of worsening symptoms, and new antibiotic Rx adherence. Patient verbalized understanding. Home via taxi, arranged by patient.
== END 2024-05-11 15:00 | disposition home or self-care (01) | DRG 177 ==
LOC: ED 20:55 → AC 21:40
PROVIDERS: Student in an Organized Health Care Education/Training Program; Admitting Provider Internal Medicine; Emergency Provider Emergency Medicine; Referring Provider Emergency Medicine; Visit Provider Internal Medicine
DX: J69.0 Pneumonitis due to inhalation of food and vomit (principal); J96.01 Acute respiratory failure with hypoxia; J45.901 Unspecified asthma with (acute) exacerbation; I48.20 Chronic atrial fibrillation, unspecified; K21.9 Gastro-esophageal reflux disease without esophagitis; R13.12 Dysphagia, oropharyngeal phase; I10 Essential (primary) hypertension; N52.9 Male erectile dysfunction, unspecified; Z79.01 Long term (current) use of anticoagulants; Z98.890 Other specified postprocedural states; Z86.79 Personal history of other diseases of the circulatory system; Z87.01 Personal history of pneumonia (recurrent)
CPT/HCPCS: 0241U; 36415; 71275; 80048; 80053; 85025; 94640; 94762; 96365; 96367; 96375; 97116; 97162; 97530; 99284; J0696; J2543; J2919; Q9967